=== PATIENT | male | born 1985 | race Caucasian/White ===

== ENCOUNTER 2023-12-30 02:12 | Emergency (ER) | payer SELFPAY ==
[~2023-12-30] VITALS: Ht 162.6 cm; Wt 59.0 kg
[2023-12-30 02:16] VITALS: BP_SYST 149; PULSE 95; RESP 16; TEMP 99.5; O2SAT 98
[2023-12-30] MEDS: DIPHENHYDRAMINE HCL 25 MG CAPSULE PO ONE (02:39)
[2023-12-30] MEDS ORDERED: DIPH25CA83 PO (02:39)
[2023-12-30] MEDS ORDERED: PRED20TA PO (02:39)
[2023-12-30 02:44] VITALS: RESP 16; TEMP 99.5
[2023-12-30 02:50] VITALS: BP_SYST 139; PULSE 85; O2SAT 100
== END 2023-12-30 03:03 | disposition home or self-care (01) ==
LOC: SED 02:12
DX: T78.49XA Other allergy, initial encounter (principal); F17.210 Nicotine dependence, cigarettes, uncomplicated; R03.0 Elevated blood-pressure reading, without diagnosis of hypertension; Z79.899 Other long term (current) drug therapy; X58.XXXA Exposure to other specified factors, initial encounter
CPT/HCPCS: 99283; Q0163